=== PATIENT | male | born 1975 | race Caucasian/White ===

== ENCOUNTER 2020-11-03 14:27 | Outpatient (CLI) | payer BC | END 2020-11-03 14:28 | disposition home or self-care (01) | LOC: CSHULT 14:27 | PROVIDERS: ATTEND Internal Medicine Nephrology | DX: N18.2 Chronic kidney disease, stage 2 (mild) (principal) | CPT/HCPCS: 76770 ==

== ENCOUNTER 2021-12-04 09:08 | Outpatient (CLI) | payer BC ==
[2021-12-04] MEDS ORDERED: Iopamidol 300 61% 100 ML VIAL FS ONE (09:46)
== END 2021-12-04 09:09 | disposition home or self-care (01) ==
LOC: CSHCT 09:08
PROVIDERS: ATTEND Internal Medicine Hematology & Oncology
DX: C18.9 Malignant neoplasm of colon, unspecified (principal); R16.1 Splenomegaly, not elsewhere classified
CPT/HCPCS: 71260; 74177; Q9967

== ENCOUNTER 2022-05-31 10:17 | Outpatient (CLI) | payer BC | END 2022-05-31 10:18 | disposition home or self-care (01) | LOC: CSHCT 10:17 | PROVIDERS: ATTEND Internal Medicine Hematology & Oncology | DX: C18.7 Malignant neoplasm of sigmoid colon (principal) | CPT/HCPCS: 71260; 74177 ==